=== PATIENT | female | born 2000 | race Two or more races ===

== ENCOUNTER 2025-02-06 15:13 | Emergency (ER) | payer MEDICAID, OTHER ==
[~2025-02-06] VITALS: Ht 165.1 cm; Wt 93.0 kg
[2025-02-06 15:28] VITALS: BP 125/69; PULSE 86; RESP 18; TEMP 98; O2SAT 96
--- NOTE | 2025-02-06 16:22 | ED.PDOC ---
GI ASSESSMENT HPI Comments This patient is a morbidly obese 24-year-old female who arrives the ED today via EMS for evaluation of right-sided abdominal pain and flank pain for the past several days. Patient has one week status post . Patient states that subsequent to that event, she has had right-sided flank and belly pain. Patient denies any weeping from the site. Patient denies any fever nausea or vomiting. Vital signs were stable on arrival. Patient is and formula feeding her . Chief Complaint: Abdominal Pain Time Seen by MD: 15:14 Primary Care Provider: TOÑITO Reviewed Notes: Nurses Notes, Operating Cost Clerk Notes Allergies: Coded Allergies: NO KNOWN ALLERGIES (Unverified , 02/06/25) Information Source: Patient, Emergency Med Personnel Mode of Arrival: EMS Timing: Days Duration: Since onset Prehospital treatment: None Quality: Aching, Cramping Vomitus: None Severity: Moderate Recent: Other (Recent delivery) Recent Hx of: Other ( delivery) Pain Location: RUQ, Other ( right flank) Associated sign and symptoms: Abdominal Pain Past Medical History PAST MEDICAL HISTORY: Denies Past Medical History (Other): recent delivery 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 History Family History Family History: Reviewed,noncontributory to illness, No family hx of Cancer, No family hx of DM, No family hx of Heart abbey, No family hx of HTN, No family hx ofKidney abbey, No family hx of Liver abbey, No family hx of Lung abbey, No family hx of Stroke Social History Smoker: Non-Smoker Alcohol: Denies ETOH Use Drugs: Denies Drug Use Lives In: Home Constitutional: denies: chills, diaphoresis, fatigue, fever, malaise, sweats, weakness, others EENTM: denies: blurred vision, double vision, ear bleeding, ear discharge, ear drainage, ear pain, ear ringing, eye pain, eye redness, hearing loss, mouth pain, mouth swelling, nasal discharge, nose bleeding, nose congestion, nose pain, photophobia, tearing, throat pain, throat swelling, voice changes, others Respiratory: denies: cough, hemoptysis, orthopnea, SOB at rest, shortness of breath, SOB with excertion, stridor, wheezing, others Cardiovascular: denies: chest pain, dizzy spells, diaphoresis, Dyspnea on e xertion, edema, irregular heart beat, left arm pain, lightheadedness, palpitations, PND, syncope, others Gastrointestinal: reports: abdominal pain; denies: abdomen distended, blood streaked bowels, constipated, diarrhea, dysphagia, difficulty swallowing, hematemesis, melena, nausea, poor appetite, poor fluid intake, rectal bleeding, rectal pain, vomiting, others Genitourinary: reports: flank pain; denies: abnormal vagina bleeding, burning, dyspareunia, dysuria, frequency, hematuria, incontinence, pain, , vagina discharge, urgency, others Neurological: denies: dizziness, fainting, headache, left sided numbness, left sided weakness, numbness, paresthesia, pre-existing deficit, right sided numbness, right sided weakness, seizure, speech problems, tingling, tremors, weakness, others Musculoskeletal: denies: back pain, gout, joint pain, joint swelling, muscle pain, muscle stiffness, neck pain, others Integumetry: denies: bruises, change in color, change in hair/nails, dryness, laceration, lesions, lumps, rash, wounds, others Allergic/Immunocompromised: denies: Difficulty Healing, Frequent Infections, Hives, Itching, others Hematologic/Lymphatic: denies: anemia, blood clots, easy bleeding, easy bruising, swollen glands, others Endocrine: denies: excessive hunger, excessive sweating, excessive thirst, excessive urination, flushing, intolerance to cold, intolerance to heat, unexplained weight gain, unexplained weight loss, others Psychiatric: denies: anxiety, bipolar disorder, depression, hopeless, panic disorder, schizophrenia, sleepless, suicidal, others All Other Systems: Reviewed and Negative Physical Exam General Appearance: Moderate Distress ( [id number] distress due to right- sided flank pain concerns), Obese HEENT: Normal ENT Inspection, Pharynx Normal, TMs Normal Neck: Full Range of Motion, Non-Tender, Normal, Normal Inspection Respiratory: Chest Non-Tender, Lungs Clear, No Accessory Muscle Use, No Respiratory Distress, Normal Breath Sounds Cardiovascular: No Edema, No JVD, No Murmur, No Gallop, Normal Peripheral Pulses, Regular Rate/Rhythm Breast Exam: Deferred Gastrointestinal: Other ( diffuse right-sided flank pain extending to the right upper and lower abdomen. Difficult to assess due to body habitus. No signs of trauma.) Genitalia: Deferred Pelvic: Deferred Rectal: Deferred Extremities: No calf tenderness, Normal capillary refill, Normal inspection, Normal range of motion, Non-tender, No pedal edema Neurologic: Alert, No Motor Deficits, Normal Affect, Normal Mood, No Sensory Deficits Cerebellar Function: Normal Reflexes: Normal Skin: Dry, Normal Color, Warm Lymphatic: No Adenopathy Was a procedure done? Was a procedure done?: No GI differential Dx Differential Diagnosis: Cholangitis, Cholecystitis, Constipation, Gastritis/PUD, Gastroenteritis, Pancreatitis, UTI, Kidney Stone, Other ( Pyelonephritis) X-Ray, Labs, Meds, VS Vital Signs Date Time Temp Pulse Resp B/P (MAP) Pulse Ox O2 Delivery O2 Flow Rate FiO2 02/06/25 15:28 98.0 86 18 125/69 (87) 96 98.0 X-Ray, Labs, Meds, VS Comment After arrival, patient stated she want to leave the facility. Nursing advised her of the need for evaluation, but the patient stated she want to leave. Patient signed an AMA form prior to leaving the campus. 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
== END 2025-02-06 16:08 | disposition left against medical advice (07) ==
LOC: EDBD 15:13 → ER 15:20
DX: R10.11 Right upper quadrant pain (principal); R10.31 Right lower quadrant pain